=== PATIENT | male | born 1940 | race Caucasian/White ===

== ENCOUNTER → 2023-05-31 | Outpatient (CLI) | payer MEDICARE, BC ==
--- NOTE | 2023-06-02 15:36 | CT ---
EXAMINATION TYPE: CT chest abdomen wo con DATE OF EXAM: 05/31/2023 INDICATION: Aneurysm. COMPARISON: None CT DLP: 1471 mGycm CONTRAST: Performed with Oral Contrast, no intravenous contrast. TECHNIQUE: Axial images at 5 mm thick sections. Reconstructed images in the coronal plane. Delayed images through the kidneys. FINDINGS: CT CHEST: Portion of the thyroid visualized is normal. There is some scarring at the bilateral posterior lung apices. Some mild emphysematous type change ma y be present. There is a 0.6 cm nodule within the right midlung. Series 4 image 33. Follow-up exam in 6 months can be performed. Some minimal posterior pleural thickening may be present in the mid lung. There is a no dule within right midlung measuring 0.4 cm. Series 4 image 41. Pneumonitis type changes are in the po sterior lateral right lung. Punctate nodules adjacent. Series 4 image 44. There is some increased den sity within the posterior lateral right lung which is nonspecific. This can be followed. Series 4 dano ge 53. Punctate nodularities in the periphery of the right lateral lung. Series 4 image 53. No enlarged mediastinal or hilar adenopathy is evident. The ascending thoracic aorta at the aortic root measures 3.6 cm. The ascending thoracic aorta at the level of the main pulmonary artery is aneurysmal at 4.1 cm. The main pulmonary artery at the bifurcat ion is 2.7 cm. The aortic arch transverse dimension is 3.1 cm. The distal descending thoracic aorta t he level of the diaphragm is 2.7 cm. The aorta within the abdomen is densely calcified. Pelvis hasn't AP diameter of 2.1 cm. Note is made of some splenic artery and renal artery calcifications. CT ABDOMEN: Liver: Normal Spleen: Normal Pancreas: Normal Adrenal glands: The adrenal glands are normal. Gallbladder: Normal Kidneys: No masses are evident. No hydronephrosis is present. No cysts are present. There is a non obstructing punctate renal stone in the mid right kidney. Aorta: Vascular calcification is within the aorta. No abdominal aortic aneurysm within the field-of- view is evident. Some stenosis cannot be excluded at the origin of the right common iliac vessel lesly re stenosis may be present at the left common iliac artery origin. Inferior vena cava: Normal. Loops of bowel distended with oral contrast are essentially unremarkable. Couple of diverticula are e vident without adjacent inflammatory changes suggest acute diverticulitis. IMPRESSIONS: 1. Ascending thoracic aortic aneurysm of 4.1 cm. 2. Dense calcification within the abdominal aorta. Stenosis cannot be excluded at the origins of the iliac vessels. 3. Couple of small nodular densities within the right lung with additional punctate densities present . Follow-up chest CT recommended in 6 months
== END | disposition home or self-care (01) ==
LOC: RADCTMAIN 08:06
PROVIDERS: ATTEND Family Medicine
DX: I71.21 Aneurysm of the ascending aorta, without rupture (principal); I71.43 Infrarenal abdominal aortic aneurysm, without rupture; J98.4 Other disorders of lung; R91.1 Solitary pulmonary nodule
CPT/HCPCS: 71250; 74150

== ENCOUNTER → 2024-01-23 | Outpatient (CLI) | payer MEDICARE, BC ==
[2024-01-23 14:40] LABS: African American GFR (CKD) >90 (>60 ml/min/1.73 sqM); Blood Urea Nitrogen 19 mg/dL (9-20); Non-African American GFR(CKD) 82 (>60 ml/min/1.73 sqM)
--- NOTE | 2024-01-24 16:30 | CT ---
EXAMINATION TYPE: CT chest w con DATE OF EXAM: 01/23/2024 COMPARISON: 05/31/2023 HISTORY: Pulmonary nodule, history of colon Ca CT DLP: 440.3 mGycm, Automated exposure control for dose reduction was used. CONTRAST: Performed injected with 100 mL of Isovue 300. TECHNIQUE: Axial images were obtained at 5 mm thick sections. Reconstructed images are reviewed on [employer] computer in the coronal plane. FINDINGS: Portion of the thyroid visualized is normal. There is a punctate density within the right midlung measuring 0.3 cm. Series 3 image 37. There is a 0.4 cm nodule within the anterior lateral right lung. Series 3 image 46. There is a calcification within the posterior medial right lung base likely is a granuloma. Series 3 image 61. Findings appear stable. No enlarged mediastinal or hilar adenopathy is evident. The aortic root measures 3.9 cm. Transverse dimension aortic arch 3.2 cm. Aorta at the diaphragm is 2 .7 cm. The ascending aorta diameter at the level of the main pulmonary artery is 3.8 cm. The main pu lmonary artery diameter at the bifurcation is 2.[address] sections are obtained through the upper abdomen. Right adrenal gland is thickened measurin g 1.7 cm. IMPRESSION: 1. Stable appearing nodules. 2. No increase in aortic size.
== END | disposition home or self-care (01) ==
LOC: RADCTMAIN 13:44
PROVIDERS: ATTEND Family Medicine
DX: R91.8 Other nonspecific abnormal finding of lung field (principal); Z85.038 Personal history of other malignant neoplasm of large intestine
CPT/HCPCS: 82565; 84520; 71260; 36415; Q9967